=== PATIENT | male | born 1985 | race Caucasian/White ===

== ENCOUNTER 2020-10-12 08:01 | Emergency (ER) | payer BC, OTHER ==
[~2020-10-12] VITALS: Ht 177.8 cm; Wt 97.3 kg
[2020-10-12] MEDS ORDERED: IBUP200T45 PO (08:06)
[2020-10-12] MEDS ORDERED: KETOROLAC TROMETHAMINE 10 MG TAB PO ONE (08:30)
--- NOTE | 2020-10-12 08:40 | REPVR ---
PROCEDURE INFORMATION: Exam: CT Lumbar Spine Without Contrast Exam date and time: 10/12/2020 8:22 AM Age: 35 years old Clinical indication: Other: Chronic back pain; Additional info: Chronic back pain, getting worse, radiating L thigh TECHNIQUE: Imaging protocol: Computed tomography images of the lumbar spine without contrast. Radiation optimization: All CT scans at this facility use at least one of these dose optimization techniques: automated exposure control; mA and/or kV adjustment per patient size (includes targeted exams where dose is matched to clinical indication); or iterative reconstruction. COMPARISON: No relevant prior studies available. 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 No acute fracture. No destructive bony process identified. Discs/Spinal canal/Neural foramina: Mild loss of L5-S1 disc height, with mild spondylosis. Left central inferiorly extruded L5-S1 disc herniation, extending approximately 9.8 mm caudal to the level of the superior S1 endplate (series 204, image 19; series 202, images 50-52). Moderate narrowing of the left lateral recess, with impingement upon the left descending S1 nerve root and left anterior lateral S1 thecal sac. Soft tissues: Unremarkable. IMPRESSION: Extruded left L5--S1 disc protrusion with left S1 nerve root impingement. Clinical correlation with the patient's specific symptomatology is recommended. Electronically signed by: Nacho Dejesus On 10/12/2020 08:40:31 AM
--- OUTSIDE RECORDS SUMMARY | 2020-10-12 08:47 | CCD ---
Author Author [facility] Organization [facility] Address Unknown Phone Unavailable Care Team Providers Care Bleaching Machine Operator Name Role Phone ClydebretLily Unavailable Unavailable Lily Grimaldo INVESTIGATION SPECIALIST Unavailable Unavailable FlubretLilyP Unavailable Unavailable Re-disclosure Warning The records that you are about to access may contain information from federally-assisted alcohol or drug abuse programs. If such information is present, then the following federally mandated warning applies: This information has been disclosed to you from records protected by federal confidentiality rules (42 CFR part 2). The federal rules prohibit you from making any further disclosure of this information unless further disclosure is expressly permitted by the written consent of the person to whom it pertains or as otherwise permitted by 42 CFR part 2. A general authorization for the release of medical or other information is NOT sufficient for this purpose. The Federal rules restrict any use of the information to criminally investigate or prosecute any alcohol or drug abuse patient.The records that you are about to access may contain highly sensitive health information, the redisclosure of which is protected by Article 27-F of the [facility] Public Health law. If you continue you may have access to information: Regarding HIV / AIDS; Provided by facilities licensed or operated by the [facility] Office of Mental Health; or Provided by the [facility] Office for People With Developmental Disabilities. If such information is present, then the following [facility] mandated warning applies: This information has been disclosed to you from confidential records which are protected by state law. State law prohibits you from making any further disclosure of this information without the specific written consent of the person to whom it pertains, or as otherwise permitted by law. Any unauthorized further disclosure in violation of state law may result in a fine or senior living sentence or both. A general authorization for the release of medical or other information is NOT sufficient authorization for further disc losure. Encounters Encounter Providers Location Date Indications Data Source(s ) Outpatient Attender: Lily Clydebret MARGARET 09/12/2019 10 :47:00 AM [facility] LHI-MHA,PHA,AUD,LAB,MMR [facility] LHI-MHA,PHA,AUD,LAB,MMR Insurance Providers Payer name Policy type / Coverage type Policy ID Covered alliance party ID Covered alliance party's relationship to [place] Policy [place] Plan Information [employer] PPO [id number]/[phone] [id number] SP [id number] [employer] SP SELF PAY [facility] S U Self FOR LIFE U Self [id number] SELF PAY SP S [employer] [id number]
[2020-10-12] MEDS ORDERED: ACET1TAB16 PO (09:33)
[2020-10-12 09:40] VITALS: BP 144/91
== END 2020-10-12 09:48 | disposition home or self-care (01) ==
LOC: M ED 08:01
DX: M51.27 Other intervertebral disc displacement, lumbosacral region (principal); M54.17 Radiculopathy, lumbosacral region; F17.220 Nicotine dependence, chewing tobacco, uncomplicated